=== PATIENT | male | born 1970 | race Two or more races ===

== ENCOUNTER 2024-07-28 08:45 | Emergency (ER) | payer OTHER ==
[~2024-07-28] VITALS: Ht 190.5 cm; Wt 97.5 kg
[2024-07-28] MEDS ORDERED: ALPRAZOLAM2 MG PO (09:36)
[2024-07-28] MEDS ORDERED: MIRTAZAPINE45 MG PO (09:36)
[2024-07-28] MEDS ORDERED: GABAPENTIN800 M1 PO (09:36)
[2024-07-28] MEDS ORDERED: BUPROPION XL150 MG PO (09:36)
[2024-07-28] MEDS ORDERED: DICLOFENAC POTA50 MG PO (09:39)
[2024-07-28] MEDS ORDERED: QUETIAPINE FUM200 MG PO (09:39)
[2024-07-28] MEDS ORDERED: ATORVASTATIN CA20 MG PO (09:39)
[2024-07-28] MEDS ORDERED: ISOSORBIDE MONO30 M2 PO (09:39)
[2024-07-28] MEDS ORDERED: RESTORIL30 MG PO (09:39)
[2024-07-28] MEDS ORDERED: FUROSEMIDE20 MG PO (09:39)
[2024-07-28] MEDS ORDERED: CERAVE MOISTUR453 GM (09:39)
== END 2024-07-28 16:55 | disposition expired ==
LOC: ER 08:45
DX: I46.9 Cardiac arrest, cause unspecified (principal); E11.9 Type 2 diabetes mellitus without complications; Z79.84 Long term (current) use of oral hypoglycemic drugs; E03.9 Hypothyroidism, unspecified